=== PATIENT | female | born 1955 | race American Indian/Alaskan Native ===

== ENCOUNTER 2019-06-04 12:37 | Outpatient (CLI) | payer OTHER ==
--- NOTE | 2019-06-08 14:23 | Mammography Report ---
BILATERAL DIGITAL SCREENING MAMMOGRAM WITH CAD INDICATION: Routine screening mammography. TECHNIQUE: Digital bilateral 2D mammography was obtained in the craniocaudal and mediolateral obliq ue projections. This examination was interpreted with the benefit of Computer-Aided Detection analysi s. COMPARISON: None available. FINDINGS: Breast Density: The breasts are heterogeneously dense, which may obscure small masses. No mass, architectural distortion or suspicious calcifications. IMPRESSION:No mammographic evidence of malignancy. BI-RADS Category 1: Negative. No mammographic evidence of malignancy. Recommend routine screening m ammography in one year. A "normal" or negative report should not discourage follow up or biopsy of a clinically significant f inding. A written summary of these findings will be mailed to the patient. The patient will be entered into a mammography reporting system which will generate a reminder letter for the patient's next appointmen t at the appropriate interval. The [employer] recommends yearly mammograms starting at age 40 and continuing as l ted as a woman is in good health. Breast MRI is recommended for women with an approximate 20-25% or greater lifetime risk of breast cancer, including women with a strong family history of breast or ova carlos cancer or who have been treated for Hodgkin's disease. Signer Name: Ck Santizo MD Signed: 06/08/2019 2:19 PM Workstation Name: [id number]
== END 2019-06-04 12:38 | disposition home or self-care (01) ==
LOC: MAMMO 12:37
PROVIDERS: ATTEND Advanced Practice Midwife
DX: Z12.31 Encounter for screening mammogram for malignant neoplasm of breast (principal)
CPT/HCPCS: 77067

== ENCOUNTER 2020-06-09 13:15 | Emergency (ER) | payer SELFPAY ==
[2020-06-09 14:09] VITALS: BP 185/85
--- NOTE | 2020-06-09 15:29 | Event Note ---
ED Screening Note Date of service: 06/09/20 Time: 15:28 ED Screening Note: This is a 65-year-old female who presented to the ED with an old fracture that happened last week. Patient states that she has been to to the urgent care clinic last week when well she got an x-ray and was told she has a hairline fracture of the wrist. Patient states that the the clinic put a splint on her wrist and give her orthopedic follow-up. Patient states she is waiting for the orthopedic appointment but is having some pain so she presents to the ED. Patient states she is already taking 7.5 mg Percocet with no relief. Patient states she called her insurance complaining of pain and was told she should come to the ED for This initial assessment/diagnostic orders/clinical plan/treatment(s) is/are subject to change based on patients health status, clinical progression and re- assessment by fellow clinical providers in the ED. Further treatment and workup at subsequent clinical providers discretion. Patient/guardian urged not to elope from the ED as their condition may be serious if not clinically assessed and managed. Initial orders include: I discussed with patient that she really has pain medication and is ready been scheduled with an orthopedic so she is not needed in the emergency department. I reviewed copies of her x-ray from the clinic. Patient likely has an appointment with orthopedics and she is to follow-up. I discussed this with the patient and patient understand instructions and will follow-up. At this point patient states she is leaving and will keep her appointment. I discussed with patient she can add Motrin every 8 hours with her current pain medication. Vital signs are normal patient is in no acute distress
== END 2020-06-09 16:00 | disposition left against medical advice (07) ==
LOC: ED 13:15
DX: M25.539 Pain in unspecified wrist (principal); Z53.21 Procedure and treatment not carried out due to patient leaving prior to being seen by health care provider